=== PATIENT | female | born 2000 | race Caucasian/White ===

== ENCOUNTER 2022-07-08 21:41 | Emergency (ER) | payer OTHER ==
[~2022-07-08] VITALS: Ht 160 cm; Wt 69.0 kg
== END 2022-07-09 00:15 | disposition home or self-care (01) ==
LOC: ED 21:41
DX: S60.512A Abrasion of left hand, initial encounter (principal); W55.03XA Scratched by cat, initial encounter; Z88.0 Allergy status to penicillin
CPT/HCPCS: 90471; 90715; 99282-25

== ENCOUNTER 2022-08-07 01:54 | Emergency (ER) | payer OTHER ==
[~2022-08-07] VITALS: Ht 160 cm; Wt 68.0 kg
--- OUTSIDE RECORDS SUMMARY | 2022-08-07 02:02 | XMS ---
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 Chad has no Care Guidelines for this patient. Flor VISIT COUNT (12 MO.) 2 [facility] TOTAL 7 NOTE: Visits indicate total known visits. ED/C VISIT TRACKING (12 MO.) 08/07/2022 01:55 [facility] [place] TYPE: Emergency COMPLAINT: - FLU SYMPTOMS 07/08/2022 21:[address] [facility] [address] [facility] [place] TYPE: Emergency COMPLAINT: - ANIMAL BITE DIAGNOSES: - Allergy status to penicillin - Abrasion of left hand, initial encounter - Scratched by cat, initial encounter [facility] DIAGNOSES: - Contusion of left back wall of thorax, initial encounter - Leg Pain - Lower back pain injury - Unspecified fall, initial encounter - Contusion of left hip, initial encounter 12[facility]21 [facility] DIAGNOSES: - Abdominal pain - Pelvic and perineal pain [facility]21 [facility] DIAGNOSES: - Streptococcal pharyngitis - Sore throat 10/03/2021 22:42 [facility] ID TYPE: Emergency DIAGNOSES: - Sprain of unspecified ligament of right ankle, initial encounter - Pain in right knee - Knee inury/Ankle injury - Knee Injury - Ankle Pain 09/29/2021 22:41 [facility] ID TYPE: Emergency DIAGNOSES: - Fever; Body Aches; Nausea; Diarrhea; Fatigue - Diarrhea - Generalized Body Aches - Fever - Noninfective gastroenteritis and colitis, unspecified INPATIENT VISIT TRACKING (12 MO.) No inpatient visits to display in this time frame [email or web address]
[2022-08-07] MEDS ORDERED: BENZONATATE100 MG PO (03:01)
== END 2022-08-07 03:44 | disposition home or self-care (01) ==
LOC: ED 01:54
DX: B34.9 Viral infection, unspecified (principal); Z20.822 Contact with and (suspected) exposure to COVID-19; Z88.0 Allergy status to penicillin
CPT/HCPCS: 71045; 87502; 99284-25; U0003

== ENCOUNTER 2022-10-26 23:47 | Emergency (ER) | payer OTHER ==
[~2022-10-26] VITALS: Ht 160 cm; Wt 72.6 kg
[~2022-10-26 23:47] MED LIST: BENZONATATE100 MG PO
[2022-10-27] MEDS ORDERED: BACTRIM DS TAB1 EACH PO (00:14)
== END 2022-10-27 00:26 | disposition home or self-care (01) ==
LOC: ED 23:47
DX: J02.9 Acute pharyngitis, unspecified (principal); Z88.0 Allergy status to penicillin
CPT/HCPCS: 87880; 99283; A9270

== ENCOUNTER 2023-01-03 17:56 | Emergency (ER) | payer OTHER ==
[~2023-01-03] VITALS: Ht 160 cm; Wt 69.4 kg
[~2023-01-03 17:56] MED LIST changes: +ANUCORT-HC25 MG PR; +BACTRIM DS TAB1 EACH PO
--- OUTSIDE RECORDS SUMMARY | 2023-01-03 18:04 | XMS ---
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 - Patient with suicidal and/or homicidal ideations eloped. - Patient eloped with IV in place. Details: Patient LWBS. CRITERIA MET - [facility] - 2 Visits in 30 Days - 6 ED Visits in 6 Months CARE PROVIDERS There are no care providers on record at this time. Chad has no Care Guidelines for this patient. E.D. VISIT COUNT (12 MO.) [address] [place] TOTAL 7 NOTE: Visits indicate total known visits. ED/UCC VISIT TRACKING (12 MO.) 01/03/2023 17:56 [facility] TYPE: Emergency COMPLAINT: - L SIDE RIB PAIN 01/02/2023 14:42 [facility] TYPE: Emergency COMPLAINT: - BLOOD IN STOOL 10/26/2022 23:49 [facility] [place] TYPE: Emergency COMPLAINT: - SORE THROAT DIAGNOSES: - Acute pharyngitis, unspecified - Allergy status to penicillin 09/04/2022 20:54 [facility] [place] TYPE: Emergency COMPLAINT: - FEVER, COVID +, LWOBS 08/07/2022 01:55 [facility] [place] TYPE: Emergency COMPLAINT: - FLU SYMPTOMS DIAGNOSES: - Viral infection, unspecified - Contact with and (suspected) exposure to COVID-19 - Allergy status to penicillin - Cough, unspecified 07/08/2022 21:43 [facility] [place] TYPE: Emergency COMPLAINT: - ANIMAL BITE DIAGNOSES: - Scratched by cat, initial encounter - Allergy status to penicillin - Abrasion of left hand, initial encounter 02/13/2022 21:37 [facility] ID TYPE: Emergency DIAGNOSES: - Unspecified fall, initial encounter - Contusion of left hip, initial encounter - Contusion of left back wall of thorax, initial encounter - Leg Pain - Lower back pain injury INPATIENT VISIT TRACKING (12 MO.) No inpatient visits to display in this time frame [id number]
== END 2023-01-03 20:15 | disposition home or self-care (01) ==
LOC: ED 17:56
DX: R07.89 Other chest pain (principal); Z88.0 Allergy status to penicillin; Z79.899 Other long term (current) drug therapy
CPT/HCPCS: 71046; 99284-25